=== PATIENT | female | born 1945 | race Hispanic/Latino ===

== ENCOUNTER 2019-10-31 12:47 | Outpatient (RCR) | payer OTHER | END 2019-11-15 | LOC: PT 12:47 | PROVIDERS: ATTEND Specialist | DX: S46.021A Laceration of muscle(s) and tendon(s) of the rotator cuff of right shoulder, initial encounter (principal); M25.511 Pain in right shoulder; M25.611 Stiffness of right shoulder, not elsewhere classified; M62.81 Muscle weakness (generalized) ==